=== PATIENT | male | born 1960 | race Caucasian/White ===

== ENCOUNTER 2020-07-15 13:39 | Inpatient (IN) | payer OTHER ==
[~2020-07-15] VITALS: Ht 188 cm; Wt 117.7 kg
[2020-07-15 15:22] LABS: Hemoglobin 10.2 g/dL (13.5-17.5)
[2020-07-15 15:25] LABS: Hematocrit 28.5 % (41.0-53.0); Mean Corpuscular Hemoglobin 39.8 pg (28.0-32.0); Mean Corpuscular Hgb Conc. 35.7 g/dL (32.0-36.0); Mean Corpuscular Volume 111.4 fL (80.0-100.0); Red Blood Cells 2.55 10^6/uL (4.5-5.90); Red Cell Distribution Width 18.1 % (11.8-14.3); White Blood Cell 17.6 10^3/uL (4.4-10.8)
[2020-07-15 15:45] LABS: Albumin 2.2 g/dL (3.4-5.0); Basophils % (manual) 0 (0.0-2.0); Blast Cells 0; Calcium 7.9 mg/dL (8.5-10.1); Eosinophils % (manual) 0 (0-7); Myelocytes % 0; Potassium 3.1 mmol/L (3.5-5.1); Promyelocytes % 0; Reactive Lymphocytes 0
[2020-07-15 15:50] LABS: BUN/Creatinine Ratio 27.6; Bilirubin, Total 10.6 mg/dL (0.2-1.0); INR 1.46 (0.9-1.15); Partial Thromboplastin Time 28.5 sec (23.0-31.2)
[2020-07-15] MEDS ORDERED: MORPHINE SULFATE INJECTION 2 MG/ML SYRG IV PRN ×3 (16:00→16:30)
[2020-07-15] MEDS ORDERED: NITROGLYCERIN 0.4 MG SL TAB SL PRN ×2 (16:00→16:30)
[2020-07-15] MEDS ORDERED: LORazepam 2MG/ML-1ML VIAL IV PRN (16:30)
[2020-07-15] MEDS ORDERED: MVI in SODIUM CHLORIDE 0.9% 1,010 ML IV ONE (16:30)
[2020-07-15] MEDS ORDERED: DOCUSATE SOD 100 MG CAP PO PRN (16:30)
[2020-07-15] MEDS ORDERED: HYDROcodone-ACET 5/325MG TAB PO PRN (16:30)
[2020-07-15] MEDS ORDERED: METOCLOPRAMIDE HCL 5MG/ml INJ 2ml VIAL IV PRN (16:30)
[2020-07-15] MEDS ORDERED: SUCRALFATE 1 GM/10 ML ORAL SUSP PO ONE (16:30)
[2020-07-15] MEDS ORDERED: ACETAMINOPHEN 325 MG TAB PO PRN (16:30)
[2020-07-15] MEDS ORDERED: ALUM & MAG HYDROX-SIMETH LIQ(MAALOX) 30 ML PO PRN (16:30)
[2020-07-15] MEDS ORDERED: cefTRIAXone 1GM/50ML D5W 50 ML IV ONE (16:30)
[2020-07-15] MEDS ORDERED: LORazepam 0.5 MG TAB PO PRN (16:30)
[2020-07-15] MEDS ORDERED: PANTOPRAZOLE 40 MG/10 ML VIAL INJ IV ONE (16:30)
[2020-07-15] MEDS ORDERED: LACTULOSE 20Gm/30ML SOLN PO ONE (16:30)
[2020-07-15] MEDS ORDERED: LORazepam 2MG/ML-1ML VIAL IV ONE (16:30)
[2020-07-15] MEDS: SUCRALFATE 1 GM/10 ML ORAL SUSP PO SCH ×2 (17:00→22:00)
[2020-07-15] MEDS ORDERED: POTASSIUM CHLORIDE 40 MEQ, LIDOCAINE 1% (LOCAL ANESTH.) 4 ML in SODIUM CHL 0.9% 250 ML IV ONE (17:30)
[2020-07-15] MEDS ORDERED: ALBUMIN 25% 100 ML IV ONE ×3 (17:45→20:30)
[2020-07-15] MEDS: MAGNESIUM SULFATE 1GM/100ML 100 ML IV SCH ×2 (18:00→19:00)
[2020-07-15 18:26] LABS: Band Neutrophils % (manual) 1; Lymphocytes % (manual) 7 (10.0-50.0); Metamyelocytes % 1; Monocytes % (manual) 5 (0-12)
[2020-07-15] MEDS ORDERED: THIAMINE 100mg/ml INJ (200mg/2ml VIAL) IV ONE (18:30)
[2020-07-15] MEDS: SODIUM CHLOR 0.9% PF (SALINE LOCK) 10ML VIAL/SYR IV SCH (22:00)
[2020-07-15] MEDS: LORazepam 2MG/ML-1ML VIAL IV PRN (23:21)
[2020-07-16] MEDS: ALBUMIN 25% 100 ML IV SCH ×3 (05:00→22:43)
[2020-07-16] MEDS: SODIUM CHLOR 0.9% PF (SALINE LOCK) 10ML VIAL/SYR IV SCH ×3 (05:59→22:00)
[2020-07-16 07:23] LABS: Hemoglobin 9.3 g/dL (13.5-17.5); Mean Corpuscular Volume 112.9 fL (80.0-100.0)
[2020-07-16 07:26] LABS: Hematocrit 26.8 % (41.0-53.0); Mean Corpuscular Hemoglobin 39.2 pg (28.0-32.0); Mean Corpuscular Hgb Conc. 34.7 g/dL (32.0-36.0); Red Blood Cells 2.37 10^6/uL (4.5-5.90); Red Cell Distribution Width 18.8 % (11.8-14.3); White Blood Cell 17.3 10^3/uL (4.4-10.8)
[2020-07-16 07:37] LABS: INR 1.33 (0.9-1.15); Partial Thromboplastin Time 30.1 sec (23.0-31.2)
[2020-07-16 07:42] LABS: Band Neutrophils % (manual) 0; Basophils % (manual) 0 (0.0-2.0); Blast Cells 0; Eosinophils % (manual) 0 (0-7); Metamyelocytes % 0; Reactive Lymphocytes 0
[2020-07-16 07:45] LABS: Potassium 3.1 mmol/L (3.5-5.1)
[2020-07-16 07:56] LABS: Albumin 2.3 g/dL (3.4-5.0); BUN/Creatinine Ratio 30.8; Bilirubin, Total 8.8 mg/dL (0.2-1.0); Magnesium 2.5 mg/dL (1.6-2.6); Phosphorus 3.1 mg/dL (2.5-4.90)
[2020-07-16] MEDS: SUCRALFATE 1 GM/10 ML ORAL SUSP PO SCH ×4 (08:09→23:58)
[2020-07-16 08:31] LABS: Lymphocytes % (manual) 15 (10.0-50.0); Monocytes % (manual) 7 (0-12); Myelocytes % 1; Promyelocytes % 1
[2020-07-16] MEDS ORDERED: cefTRIAXone 1GM/50ML D5W 50 ML IV SCH (09:00)
[2020-07-16] MEDS: ASPirin 81 mg TAB PO SCH ×2 (09:15→11:15)
[2020-07-16] MEDS: THIAMINE HCL 100 MG TAB PO SCH ×2 (09:16→11:15)
[2020-07-16] MEDS: SPIRONOLACTONE 25 MG TAB PO SCH ×2 (09:16→11:15)
[2020-07-16] MEDS: FOLIC ACID 1 MG TAB PO SCH ×2 (09:16→11:15)
[2020-07-16] MEDS: MULTIPLE VITAMIN TAB PO SCH ×2 (09:17→11:15)
[2020-07-16] MEDS: POTASSIUM CHL 20 Meq TABLET PO SCH ×2 (09:17→11:15)
[2020-07-16] MEDS ORDERED: PANTOPRAZOLE 40 MG/10 ML VIAL INJ IV SCH (10:00)
[2020-07-16 15:32] LABS: Urine Bacteria FEW /hpf (None Seen); Urine Blood TRACE /uL (Negative); Urine Specific Gravity 1.018 (1.001-1.035); Urine WBC 8 /hpf (0 - 3)
[2020-07-16 15:55] LABS: Alcohol, Urine < 3.0 mg/dL (0-10); Amphetamine Screen, Urine NEGATIVE (NEGATIVE); Barbiturate Scree,Urine NEGATIVE (NEGATIVE); Benzodiazephine Screen, Urine NEGATIVE (NEGATIVE); Cannabinoid Screen, Urine NEGATIVE (NEGATIVE); Cocaine Screen, Urine NEGATIVE (NEGATIVE); Opiate Scree,Urine NEGATIVE (NEGATIVE); Phencyclidine Screen, Urine NEGATIVE (NEGATIVE)
[2020-07-16] MEDS: LORazepam 2MG/ML-1ML VIAL IV PRN ×2 (18:15→21:35)
[2020-07-16] MEDS: ATORVASTATIN 20 MG TAB PO SCH (23:58)
[2020-07-17] MEDS ORDERED: POTASSIUM CHL 20MEQ/100ML 100 ML IV ONE ×2 (00:30→19:00)
[2020-07-17] MEDS: SODIUM CHLOR 0.9% PF (SALINE LOCK) 10ML VIAL/SYR IV SCH ×3 (06:00→23:10)
[2020-07-17] MEDS: CLINDAMYCIN 300MG IV 50 ML IV SCH ×3 (06:00→23:10)
[2020-07-17] MEDS: LORazepam 2MG/ML-1ML VIAL IV PRN ×5 (07:23→22:21)
[2020-07-17 07:45] LABS: Hematocrit 25.8 % (41.0-53.0); Hemoglobin 9.1 g/dL (13.5-17.5); Mean Corpuscular Volume 112.4 fL (80.0-100.0); White Blood Cell 15.6 10^3/uL (4.4-10.8)
[2020-07-17 07:46] LABS: Mean Corpuscular Hemoglobin 39.5 pg (28.0-32.0); Mean Corpuscular Hgb Conc. 35.2 g/dL (32.0-36.0); Red Cell Distribution Width 18.3 % (11.8-14.3)
[2020-07-17] MEDS: SUCRALFATE 1 GM/10 ML ORAL SUSP PO SCH ×4 (07:59→23:11)
[2020-07-17 08:12] LABS: INR 1.37 (0.9-1.15); Partial Thromboplastin Time 31.2 sec (23.0-31.2)
[2020-07-17 08:25] LABS: Basophils % (manual) 0 (0.0-2.0); Blast Cells 0; Eosinophils % (manual) 0 (0-7); Metamyelocytes % 0; Myelocytes % 0; Promyelocytes % 0; Reactive Lymphocytes 0
[2020-07-17 08:35] LABS: Calcium 7.9 mg/dL (8.5-10.1)
[2020-07-17 08:40] LABS: Albumin 2.5 g/dL (3.4-5.0); Bilirubin, Total 7.5 mg/dL (0.2-1.0); Magnesium 2.3 mg/dL (1.6-2.6); Phosphorus 3.2 mg/dL (2.5-4.90); Total Protein 6.6 g/dL (6.4-8.2)
[2020-07-17 09:47] LABS: Band Neutrophils % (manual) 1; Lymphocytes % (manual) 8 (10.0-50.0); Monocytes % (manual) 3 (0-12)
[2020-07-17] MEDS: POTASSIUM CHL 20 Meq TABLET PO SCH (10:00)
[2020-07-17] MEDS: SPIRONOLACTONE 25 MG TAB PO SCH (11:34)
[2020-07-17] MEDS: ASPirin 81 mg TAB PO SCH (11:35)
[2020-07-17] MEDS: levoFLOXacin 500MG 100 ML IV SCH (11:35)
[2020-07-17] MEDS: FAMOTIDINE (10MG/ML) 2ML VL IV SCH ×3 (11:35→23:10)
[2020-07-17] MEDS: FOLIC ACID 1 MG TAB PO SCH (11:41)
[2020-07-17] MEDS: THIAMINE HCL 100 MG TAB PO SCH (11:41)
[2020-07-17] MEDS: MULTIPLE VITAMIN TAB PO SCH (11:42)
[2020-07-17] MEDS: LACTULOSE 20Gm/30ML SOLN PO PRN (14:49)
[2020-07-17] MEDS ORDERED: diazePAM 5 MG TAB PO ONE (18:45)
[2020-07-17] MEDS ORDERED: LORazepam 2MG/ML-1ML VIAL IV SCH (22:00)
[2020-07-17] MEDS: ATORVASTATIN 20 MG TAB PO SCH (23:11)
[2020-07-18] MEDS: LORazepam 2MG/ML-1ML VIAL IV PRN ×5 (01:10→05:02)
[2020-07-18] MEDS: METOPROLOL TARTRATE 1MG/1ML-5ML VIAL IV SCH ×5 (02:37→23:57)
[2020-07-18] MEDS: SODIUM CHLOR 0.9% PF (SALINE LOCK) 10ML VIAL/SYR IV SCH ×3 (05:03→22:06)
[2020-07-18] MEDS: CLINDAMYCIN 300MG IV 50 ML IV SCH ×3 (05:03→22:06)
[2020-07-18] MEDS: SUCRALFATE 1 GM/10 ML ORAL SUSP PO SCH ×4 (06:08→22:06)
[2020-07-18 07:31] LABS: Basophils # (auto) 0.1 10 ^3/uL (0-0.2); Lymphocytes % (auto) 9.5 % (10.0-50.0); Mean Corpuscular Hemoglobin 39.4 pg (28.0-32.0); Monocytes # (auto) 1.6 10 ^3/uL (0-1.3); Nucleated Red Blood Cells % 0.2 %
[2020-07-18 07:34] LABS: Basophils % (auto) 0.8 % (0.0-2.0); Eosinophils # (auto) 0.1 10 ^3/uL (0-0.8); Eosinophils % (auto) 0.4 % (0.0-7.0); Hematocrit 26.5 % (41.0-53.0); Hemoglobin 9.2 g/dL (13.5-17.5); Lymphocytes # (auto) 1.4 10 ^3/uL (0.4-5.4); Mean Corpuscular Hgb Conc. 34.7 g/dL (32.0-36.0); Mean Corpuscular Volume 113.5 fL (80.0-100.0); Monocytes % (auto) 10.9 % (0.0-12.0); Neutrophils # (auto) 11.2 10 ^3/uL (1.6-8.6); Neutrophils % (auto) 78.4 % (37.0-80.0); Red Blood Cells 2.33 10^6/uL (4.5-5.90); Red Cell Distribution Width 19.3 % (11.8-14.3); White Blood Cell 14.3 10^3/uL (4.4-10.8)
[2020-07-18 07:51] LABS: INR 1.38 (0.9-1.15); Partial Thromboplastin Time 30.9 sec (23.0-31.2)
[2020-07-18 07:52] LABS: Magnesium 2.2 mg/dL (1.6-2.6); Potassium 3.5 mmol/L (3.5-5.1)
[2020-07-18 08:08] LABS: BUN/Creatinine Ratio 30.5
[2020-07-18 08:09] LABS: Albumin 2.3 g/dL (3.4-5.0); Bilirubin, Total 6.7 mg/dL (0.2-1.0); Calcium 8.3 mg/dL (8.5-10.1); Phosphorus 2.8 mg/dL (2.5-4.90); Total Protein 6.5 g/dL (6.4-8.2)
[2020-07-18] MEDS: THIAMINE HCL 100 MG TAB PO SCH (10:00)
[2020-07-18] MEDS: FAMOTIDINE (10MG/ML) 2ML VL IV SCH ×2 (10:00→22:06)
[2020-07-18] MEDS: FOLIC ACID 1 MG TAB PO SCH (10:47)
[2020-07-18] MEDS: ATORVASTATIN 20 MG TAB PO SCH (10:47)
[2020-07-18] MEDS: SPIRONOLACTONE 25 MG TAB PO SCH (10:47)
[2020-07-18] MEDS: MULTIPLE VITAMIN TAB PO SCH (10:47)
[2020-07-18] MEDS: ASPirin 81 mg TAB PO SCH (10:47)
[2020-07-18] MEDS: levoFLOXacin 500MG 100 ML IV SCH (10:55)
[2020-07-18] MEDS ORDERED: ENOXAPARIN SOD 40 MG/0.4 ML SYRINGE SC ONE (19:30)
[2020-07-19] MEDS: CLINDAMYCIN 300MG IV 50 ML IV SCH (06:01)
[2020-07-19] MEDS: METOPROLOL TARTRATE 1MG/1ML-5ML VIAL IV SCH ×3 (06:02→17:40)
[2020-07-19] MEDS: SODIUM CHLOR 0.9% PF (SALINE LOCK) 10ML VIAL/SYR IV SCH ×3 (06:02→22:13)
[2020-07-19 06:14] VITALS: BP 129/66
[2020-07-19] MEDS: SUCRALFATE 1 GM/10 ML ORAL SUSP PO SCH ×4 (06:49→22:13)
[2020-07-19 08:00] VITALS: BP 141/74
[2020-07-19] MEDS: levoFLOXacin 500MG 100 ML IV SCH (09:54)
[2020-07-19] MEDS: FAMOTIDINE (10MG/ML) 2ML VL IV SCH ×2 (09:54→22:13)
[2020-07-19] MEDS: SPIRONOLACTONE 25 MG TAB PO SCH (09:55)
[2020-07-19] MEDS: ASPirin 81 mg TAB PO SCH (09:55)
[2020-07-19] MEDS: THIAMINE HCL 100 MG TAB PO SCH (09:55)
[2020-07-19] MEDS: MULTIPLE VITAMIN TAB PO SCH (09:55)
[2020-07-19] MEDS: FOLIC ACID 1 MG TAB PO SCH (09:55)
[2020-07-19] MEDS ORDERED: ENOXAPARIN SOD 40 MG/0.4 ML SYRINGE SC SCH (10:00)
[2020-07-19] MEDS ORDERED: ENOXAPARIN SOD 60 MG/0.6 ML SYRINGE SC ONE (10:15)
[2020-07-19] MEDS ORDERED: dilTIAZem 25 MG/5 ML VIAL IV ONE (10:15)
[2020-07-19] MEDS ORDERED: Jevity 1.2 Cal/Fiber 1 Liter GT SCH (10:30)
[2020-07-19 11:31] LABS: Basophils # (auto) 0.1 10 ^3/uL (0-0.2); Hematocrit 25.1 % (41.0-53.0); Hemoglobin 8.7 g/dL (13.5-17.5); Mean Corpuscular Hemoglobin 39.8 pg (28.0-32.0); Mean Corpuscular Hgb Conc. 34.7 g/dL (32.0-36.0); Mean Corpuscular Volume 114.8 fL (80.0-100.0)
[2020-07-19 11:33] LABS: Basophils % (auto) 0.8 % (0.0-2.0); Eosinophils # (auto) 0 10 ^3/uL (0-0.8); Eosinophils % (auto) 0.3 % (0.0-7.0); Lymphocytes # (auto) 1.4 10 ^3/uL (0.4-5.4); Lymphocytes % (auto) 10.2 % (10.0-50.0); Monocytes # (auto) 1.5 10 ^3/uL (0-1.3); Monocytes % (auto) 10.6 % (0.0-12.0); Neutrophils # (auto) 10.7 10 ^3/uL (1.6-8.6); Neutrophils % (auto) 78.1 % (37.0-80.0); Nucleated Red Blood Cells % 0.1 %; Red Blood Cells 2.18 10^6/uL (4.5-5.90); White Blood Cell 13.7 10^3/uL (4.4-10.8)
[2020-07-19 11:41] LABS: Red Cell Distribution Width 20.1 % (11.8-14.3)
[2020-07-19] MEDS: PIPERACILLIN-TAZOB 3.375GM 100 ML IV SCH ×2 (12:00→17:40)
[2020-07-19 12:01] LABS: Potassium 3.2 mmol/L (3.5-5.1)
[2020-07-19 12:24] LABS: BUN/Creatinine Ratio 27.6; Bilirubin, Total 5.4 mg/dL (0.2-1.0)
[2020-07-19] MEDS ORDERED: POTASSIUM EFFERVESENT TAB 25 MEQ GT ONE (13:45)
[2020-07-19] MEDS ORDERED: FUROSEMIDE 20 MG/2 ML VIAL IV ONE (15:15)
[2020-07-19 16:33] VITALS: BP 128/80
[2020-07-19 22:00] VITALS: BP 114/72
[2020-07-19] MEDS: ENOXAPARIN SOD 100 MG/1 ML SYRINGE SC SCH (22:14)
[2020-07-19] MEDS: ATORVASTATIN 20 MG TAB PO SCH (22:14)
[2020-07-20] MEDS: METOPROLOL TARTRATE 1MG/1ML-5ML VIAL IV SCH ×4 (00:34→18:16)
[2020-07-20] MEDS: PIPERACILLIN-TAZOB 3.375GM 100 ML IV SCH ×4 (00:35→18:16)
[2020-07-20 05:00] VITALS: BP 141/74
[2020-07-20] MEDS: SODIUM CHLOR 0.9% PF (SALINE LOCK) 10ML VIAL/SYR IV SCH ×3 (06:00→21:47)
[2020-07-20] MEDS: SUCRALFATE 1 GM/10 ML ORAL SUSP PO SCH ×5 (07:00→21:47)
[2020-07-20 07:28] LABS: Basophils # (auto) 0.2 10 ^3/uL (0-0.2); Hemoglobin 9.1 g/dL (13.5-17.5); Lymphocytes # (auto) 1.4 10 ^3/uL (0.4-5.4); Red Blood Cells 2.28 10^6/uL (4.5-5.90)
[2020-07-20 07:29] LABS: Basophils % (auto) 1.2 % (0.0-2.0); Eosinophils # (auto) 0 10 ^3/uL (0-0.8); Eosinophils % (auto) 0.2 % (0.0-7.0); Hematocrit 26.2 % (41.0-53.0); Lymphocytes % (auto) 8.2 % (10.0-50.0); Mean Corpuscular Hemoglobin 39.7 pg (28.0-32.0); Mean Corpuscular Hgb Conc. 34.7 g/dL (32.0-36.0); Mean Corpuscular Volume 114.5 fL (80.0-100.0); Monocytes # (auto) 1.9 10 ^3/uL (0-1.3); Neutrophils # (auto) 13.4 10 ^3/uL (1.6-8.6); Neutrophils % (auto) 79.4 % (37.0-80.0); White Blood Cell 16.9 10^3/uL (4.4-10.8)
[2020-07-20 07:41] LABS: Potassium 3.5 mmol/L (3.5-5.1)
[2020-07-20 07:47] LABS: BUN/Creatinine Ratio 25.8; Bilirubin, Total 5.1 mg/dL (0.2-1.0); Total Protein 6.1 g/dL (6.4-8.2)
[2020-07-20 08:00] VITALS: BP 130/80
[2020-07-20] MEDS: LORazepam 2MG/ML-1ML VIAL IV PRN (08:38)
[2020-07-20] MEDS ORDERED: FUROSEMIDE 20 MG/2 ML VIAL IV SCH ×2 (10:00→11:15)
[2020-07-20] MEDS: FAMOTIDINE (10MG/ML) 2ML VL IV SCH ×2 (10:42→21:47)
[2020-07-20] MEDS: SPIRONOLACTONE 25 MG TAB PO SCH (10:43)
[2020-07-20] MEDS: THIAMINE HCL 100 MG TAB PO SCH (10:43)
[2020-07-20] MEDS: FOLIC ACID 1 MG TAB PO SCH (10:43)
[2020-07-20] MEDS: MULTIPLE VITAMIN TAB PO SCH (10:43)
[2020-07-20] MEDS: ASPirin 81 mg TAB PO SCH (10:43)
[2020-07-20] MEDS: ENOXAPARIN SOD 100 MG/1 ML SYRINGE SC SCH ×2 (10:43→21:48)
[2020-07-20] MEDS ORDERED: FUROSEMIDE 20 MG/2 ML VIAL IV ONE (11:15)
[2020-07-20] MEDS: LACTULOSE 20Gm/30ML SOLN PO PRN (12:59)
[2020-07-20 17:00] VITALS: BP 124/66
[2020-07-20] MEDS: ATORVASTATIN 20 MG TAB PO SCH (21:48)
[2020-07-20 22:00] VITALS: BP 127/70
[2020-07-21] MEDS: PIPERACILLIN-TAZOB 3.375GM 100 ML IV SCH ×4 (01:09→17:29)
[2020-07-21] MEDS: METOPROLOL TARTRATE 1MG/1ML-5ML VIAL IV SCH ×4 (01:09→17:30)
[2020-07-21 05:00] VITALS: BP 150/74
[2020-07-21 05:47] LABS: Basophils # (auto) 0.2 10 ^3/uL (0-0.2); Basophils % (auto) 1.2 % (0.0-2.0); Mean Corpuscular Volume 114.8 fL (80.0-100.0); Red Cell Distribution Width 19.5 % (11.8-14.3)
[2020-07-21 05:49] LABS: Eosinophils # (auto) 0.2 10 ^3/uL (0-0.8); Eosinophils % (auto) 1.1 % (0.0-7.0); Hematocrit 26.8 % (41.0-53.0); Hemoglobin 9.4 g/dL (13.5-17.5); Lymphocytes # (auto) 1.8 10 ^3/uL (0.4-5.4); Lymphocytes % (auto) 11.4 % (10.0-50.0); Mean Corpuscular Hemoglobin 40.1 pg (28.0-32.0); Mean Corpuscular Hgb Conc. 34.9 g/dL (32.0-36.0); Monocytes % (auto) 12.7 % (0.0-12.0); Neutrophils # (auto) 11.6 10 ^3/uL (1.6-8.6); Neutrophils % (auto) 73.6 % (37.0-80.0); Red Blood Cells 2.34 10^6/uL (4.5-5.90); White Blood Cell 15.7 10^3/uL (4.4-10.8)
[2020-07-21 06:09] LABS: BUN/Creatinine Ratio 31.3; Calcium 8.5 mg/dL (8.5-10.1); Potassium 3.2 mmol/L (3.5-5.1)
[2020-07-21] MEDS: SUCRALFATE 1 GM/10 ML ORAL SUSP PO SCH ×4 (06:29→22:00)
[2020-07-21] MEDS: SODIUM CHLOR 0.9% PF (SALINE LOCK) 10ML VIAL/SYR IV SCH ×3 (06:29→22:01)
[2020-07-21 08:00] VITALS: BP 135/76
[2020-07-21] MEDS ORDERED: FUROSEMIDE 20 MG/2 ML VIAL IV SCH (10:00)
[2020-07-21] MEDS: FAMOTIDINE (10MG/ML) 2ML VL IV SCH ×2 (10:29→22:00)
[2020-07-21] MEDS: THIAMINE HCL 100 MG TAB PO SCH (10:30)
[2020-07-21] MEDS: MULTIPLE VITAMIN TAB PO SCH (10:30)
[2020-07-21] MEDS: ASPirin 81 mg TAB PO SCH (10:30)
[2020-07-21] MEDS: ENOXAPARIN SOD 100 MG/1 ML SYRINGE SC SCH (10:30)
[2020-07-21] MEDS: FOLIC ACID 1 MG TAB PO SCH (10:30)
[2020-07-21] MEDS: SPIRONOLACTONE 25 MG TAB PO SCH (10:30)
[2020-07-21] MEDS: POTASSIUM CHL 20MEQ/100ML 100 ML IV SCH ×3 (14:00→18:25)
[2020-07-21 16:00] VITALS: BP 121/56
[2020-07-21 22:00] VITALS: BP 146/74
[2020-07-21] MEDS: ATORVASTATIN 20 MG TAB PO SCH (22:00)
[2020-07-21] MEDS: LORazepam 2MG/ML-1ML VIAL IV PRN (22:02)
[2020-07-22] MEDS: METOPROLOL TARTRATE 1MG/1ML-5ML VIAL IV SCH ×2 (00:11→05:32)
[2020-07-22] MEDS: PIPERACILLIN-TAZOB 3.375GM 100 ML IV SCH ×5 (00:11→23:48)
[2020-07-22 05:00] VITALS: BP 147/69
[2020-07-22] MEDS: SODIUM CHLOR 0.9% PF (SALINE LOCK) 10ML VIAL/SYR IV SCH ×3 (05:36→22:02)
[2020-07-22] MEDS: SUCRALFATE 1 GM/10 ML ORAL SUSP PO SCH ×4 (06:19→20:40)
[2020-07-22 06:39] LABS: Basophils # (auto) 0.2 10 ^3/uL (0-0.2); Monocytes # (auto) 2.3 10 ^3/uL (0-1.3)
[2020-07-22 06:42] LABS: Eosinophils # (auto) 0.3 10 ^3/uL (0-0.8); Eosinophils % (auto) 1.8 % (0.0-7.0); Hematocrit 26.5 % (41.0-53.0); Lymphocytes % (auto) 12.6 % (10.0-50.0); Mean Corpuscular Hemoglobin 39.3 pg (28.0-32.0); Mean Corpuscular Hgb Conc. 34.1 g/dL (32.0-36.0); Mean Corpuscular Volume 115.3 fL (80.0-100.0); Monocytes % (auto) 14.6 % (0.0-12.0); Neutrophils # (auto) 10.9 10 ^3/uL (1.6-8.6); Red Blood Cells 2.29 10^6/uL (4.5-5.90); Red Cell Distribution Width 19.1 % (11.8-14.3); White Blood Cell 15.6 10^3/uL (4.4-10.8)
[2020-07-22 07:03] LABS: Potassium 3.8 mmol/L (3.5-5.1)
[2020-07-22 07:09] LABS: Albumin 1.8 g/dL (3.4-5.0); BUN/Creatinine Ratio 34.3; Bilirubin, Total 3.9 mg/dL (0.2-1.0); Calcium 8.2 mg/dL (8.5-10.1)
[2020-07-22 08:00] VITALS: BP 157/84
[2020-07-22] MEDS: FAMOTIDINE (10MG/ML) 2ML VL IV SCH ×2 (09:41→22:02)
[2020-07-22] MEDS: MULTIPLE VITAMIN TAB PO SCH (09:42)
[2020-07-22] MEDS: SPIRONOLACTONE 25 MG TAB PO SCH (09:44)
[2020-07-22] MEDS: FOLIC ACID 1 MG TAB PO SCH (09:44)
[2020-07-22] MEDS: THIAMINE HCL 100 MG TAB PO SCH (09:44)
[2020-07-22] MEDS ORDERED: FUROSEMIDE 40 MG/4 ML VIAL IV SCH (10:00)
[2020-07-22] MEDS ORDERED: DIGOXIN 0.25 MG TAB PO ONE (14:15)
[2020-07-22] MEDS ORDERED: ALBUTEROL SULF 2.5 MG/0.5ML(0.5%) NEB SOLN NEB PRN (14:15)
[2020-07-22] MEDS ORDERED: LACTULOSE 20Gm/30ML SOLN PO PRN (14:15)
[2020-07-22 16:01] VITALS: BP 142/77
[2020-07-22 17:04] LABS: Hepatitis B Core IgM Negative; Hepatitis B Surface Antigen Negative (Negative)
[2020-07-22 17:05] LABS: Hepatitis C Antibody Negative (Negative)
[2020-07-22] MEDS: LORazepam 2MG/ML-1ML VIAL IV PRN (17:15)
[2020-07-22] MEDS: METOPROLOL TARTRATE 25 MG TAB PO SCH (20:40)
[2020-07-22] MEDS: ATORVASTATIN 20 MG TAB PO SCH (20:40)
[2020-07-22] MEDS ORDERED: FUROSEMIDE 20 MG/2 ML VIAL IV SCH (20:45)
[2020-07-22 22:00] VITALS: BP 134/92
[2020-07-22] MEDS: METOPROLOL TARTRATE 1MG/1ML-5ML VIAL IV PRN (23:06)
[2020-07-23] VITALS (44 sets, daily range): BP systolic 67–172; BP diastolic 24–110
[2020-07-23] MEDS: SODIUM CHLOR 0.9% PF (SALINE LOCK) 10ML VIAL/SYR IV SCH ×3 (06:00→22:00)
[2020-07-23] MEDS: PIPERACILLIN-TAZOB 3.375GM 100 ML IV SCH ×3 (06:00→17:00)
[2020-07-23] MEDS: SUCRALFATE 1 GM/10 ML ORAL SUSP PO SCH ×4 (07:00→22:00)
[2020-07-23 09:17] LABS: Hematocrit 27.3 % (41.0-53.0); Hemoglobin 9.2 g/dL (13.5-17.5)
[2020-07-23 09:19] LABS: Mean Corpuscular Hemoglobin 39.2 pg (28.0-32.0); Mean Corpuscular Hgb Conc. 33.8 g/dL (32.0-36.0); Mean Corpuscular Volume 116.1 fL (80.0-100.0); Red Blood Cells 2.35 10^6/uL (4.5-5.90); Red Cell Distribution Width 18.9 % (11.8-14.3); White Blood Cell 16.9 10^3/uL (4.4-10.8)
[2020-07-23 09:28] LABS: Band Neutrophils % (manual) 0; Basophils % (manual) 0 (0.0-2.0); Blast Cells 0; Eosinophils % (manual) 0 (0-7); Metamyelocytes % 0; Myelocytes % 0; Promyelocytes % 0; Reactive Lymphocytes 0
[2020-07-23 09:34] LABS: BUN/Creatinine Ratio 32.7; Calcium 8.6 mg/dL (8.5-10.1); Potassium 3.8 mmol/L (3.5-5.1)
[2020-07-23 09:44] LABS: Lymphocytes % (manual) 13 (10.0-50.0); Monocytes % (manual) 18 (0-12)
[2020-07-23] MEDS: FAMOTIDINE (10MG/ML) 2ML VL IV SCH ×2 (09:56→22:00)
[2020-07-23] MEDS: METOPROLOL TARTRATE 1MG/1ML-5ML VIAL IV PRN (09:56)
[2020-07-23] MEDS: FOLIC ACID 1 MG TAB PO SCH (09:57)
[2020-07-23] MEDS: DIGOXIN 0.25 MG TAB PO SCH (09:57)
[2020-07-23] MEDS: THIAMINE HCL 100 MG TAB PO SCH (09:57)
[2020-07-23] MEDS: SPIRONOLACTONE 25 MG TAB PO SCH (09:57)
[2020-07-23] MEDS: MULTIPLE VITAMIN TAB PO SCH (09:58)
[2020-07-23] MEDS: METOPROLOL TARTRATE 25 MG TAB PO SCH ×3 (09:58→22:00)
[2020-07-23] MEDS ORDERED: FUROSEMIDE 20 MG/2 ML VIAL IV SCH (10:00)
[2020-07-23] MEDS: D5W 5% 1,000 ML IV SCH ×2 (12:37→20:15)
[2020-07-23] MEDS: ATORVASTATIN 20 MG TAB PO SCH (22:00)
[2020-07-24] VITALS (54 sets, daily range): BP systolic 101–162; BP diastolic 43–114
[2020-07-24 05:00] LABS: Hemoglobin 8.5 g/dL (13.5-17.5)
[2020-07-24 05:02] LABS: Hematocrit 24.8 % (41.0-53.0); Mean Corpuscular Hemoglobin 39.7 pg (28.0-32.0); Mean Corpuscular Hgb Conc. 34.4 g/dL (32.0-36.0); Mean Corpuscular Volume 115.3 fL (80.0-100.0); Red Blood Cells 2.15 10^6/uL (4.5-5.90); Red Cell Distribution Width 18.9 % (11.8-14.3); White Blood Cell 14.4 10^3/uL (4.4-10.8)
[2020-07-24 05:06] LABS: Basophils % (manual) 0 (0.0-2.0); Blast Cells 0; Metamyelocytes % 0; Myelocytes % 0; Promyelocytes % 0; Reactive Lymphocytes 0
[2020-07-24 05:13] LABS: BUN/Creatinine Ratio 37.2; Calcium 8.2 mg/dL (8.5-10.1); Potassium 3.3 mmol/L (3.5-5.1)
[2020-07-24] MEDS: SODIUM CHLOR 0.9% PF (SALINE LOCK) 10ML VIAL/SYR IV SCH ×3 (05:19→21:50)
[2020-07-24] MEDS: PIPERACILLIN-TAZOB 3.375GM 100 ML IV SCH ×5 (05:19→23:43)
[2020-07-24 05:37] LABS: Band Neutrophils % (manual) 13; Eosinophils % (manual) 4 (0-7); Lymphocytes % (manual) 18 (10.0-50.0); Monocytes % (manual) 7 (0-12)
[2020-07-24] MEDS: SUCRALFATE 1 GM/10 ML ORAL SUSP PO SCH ×4 (06:24→21:50)
[2020-07-24] MEDS: METOPROLOL TARTRATE 25 MG TAB PO SCH ×2 (09:00→21:58)
[2020-07-24] MEDS: THIAMINE HCL 100 MG TAB PO SCH (09:00)
[2020-07-24] MEDS: MULTIPLE VITAMIN TAB PO SCH (09:00)
[2020-07-24] MEDS: FOLIC ACID 1 MG TAB PO SCH (09:00)
[2020-07-24] MEDS: DIGOXIN 0.25 MG TAB PO SCH (09:00)
[2020-07-24] MEDS: FAMOTIDINE (10MG/ML) 2ML VL IV SCH ×2 (09:00→21:50)
[2020-07-24] MEDS: SPIRONOLACTONE 25 MG TAB PO SCH (09:00)
[2020-07-24] MEDS ORDERED: POTASSIUM CHL 20MEQ/100ML 100 ML IV ONE (09:45)
[2020-07-24] MEDS: D5W 5% 1,000 ML IV SCH (11:00)
[2020-07-24] MEDS: chlordiazePOXIDE HCL 5 MG CAP PO SCH ×3 (13:08→21:50)
[2020-07-24] MEDS: DOXYCYCLINE 100MG/250ML 250 ML IV SCH (21:15)
[2020-07-24] MEDS: ATORVASTATIN 20 MG TAB PO SCH (21:50)
[2020-07-24] MEDS ORDERED: DEXTROSE (50%) 50ML SYRG IV SCH (22:30)
[2020-07-24] MEDS ORDERED: AMINO ACID INFUSION IN D5W 2,000 ML IV NR (22:45)
[2020-07-24] MEDS ORDERED: D5W 5% 1,000 ML IV SCH ×2 (22:45)
[2020-07-24] MEDS ORDERED: PPN PER PHARMACY 0 ML IV SCH (23:15)
[2020-07-25] VITALS (40 sets, daily range): BP systolic 91–141; BP diastolic 51–98
[2020-07-25] MEDS: chlordiazePOXIDE HCL 5 MG CAP PO SCH ×4 (02:00→22:00)
[2020-07-25 04:35] LABS: Basophils # (auto) 0.3 10 ^3/uL (0-0.2); Eosinophils # (auto) 0.3 10 ^3/uL (0-0.8); Hemoglobin 8.8 g/dL (13.5-17.5); White Blood Cell 12.6 10^3/uL (4.4-10.8)
[2020-07-25 04:37] LABS: Eosinophils % (auto) 2.2 % (0.0-7.0); Hematocrit 25.8 % (41.0-53.0); Lymphocytes # (auto) 2.4 10 ^3/uL (0.4-5.4); Mean Corpuscular Hgb Conc. 33.9 g/dL (32.0-36.0); Mean Corpuscular Volume 115.2 fL (80.0-100.0); Monocytes # (auto) 1.9 10 ^3/uL (0-1.3); Monocytes % (auto) 15.2 % (0.0-12.0); Neutrophils # (auto) 7.8 10 ^3/uL (1.6-8.6); Neutrophils % (auto) 61.6 % (37.0-80.0); Red Blood Cells 2.24 10^6/uL (4.5-5.90); Red Cell Distribution Width 18.7 % (11.8-14.3)
[2020-07-25 04:54] LABS: Albumin 1.7 g/dL (3.4-5.0); BUN/Creatinine Ratio 31.4; Calcium 8.3 mg/dL (8.5-10.1); Magnesium 2.1 mg/dL (1.6-2.6); Potassium 3.3 mmol/L (3.5-5.1)
[2020-07-25 05:00] LABS: Phosphorus 3.3 mg/dL (2.5-4.90); Total Protein 5.8 g/dL (6.4-8.2)
[2020-07-25] MEDS: PIPERACILLIN-TAZOB 3.375GM 100 ML IV SCH ×3 (05:27→17:00)
[2020-07-25] MEDS: SODIUM CHLOR 0.9% PF (SALINE LOCK) 10ML VIAL/SYR IV SCH ×3 (05:27→21:47)
[2020-07-25] MEDS: ACCU-CHEK COMFORT CURVE STRIP VI SCH ×4 (05:28→17:00)
[2020-07-25] MEDS: InsuLIN REG 1unit/0.01ml Soln (100units/ml) SC SCH ×4 (05:28→17:00)
[2020-07-25] MEDS: SUCRALFATE 1 GM/10 ML ORAL SUSP PO SCH ×4 (07:00→21:47)
[2020-07-25] MEDS: DOXYCYCLINE 100MG/250ML 250 ML IV SCH ×2 (08:50→21:00)
[2020-07-25] MEDS: THIAMINE 100mg/ml INJ (200mg/2ml VIAL) IV SCH (09:55)
[2020-07-25] MEDS: FAMOTIDINE (10MG/ML) 2ML VL IV SCH ×2 (09:55→21:47)
[2020-07-25] MEDS: SPIRONOLACTONE 25 MG TAB PO SCH (09:56)
[2020-07-25] MEDS: DIGOXIN 0.25 MG TAB PO SCH (09:56)
[2020-07-25] MEDS: METOPROLOL TARTRATE 25 MG TAB PO SCH ×2 (09:56→21:47)
[2020-07-25] MEDS: MULTIPLE VITAMIN TAB PO SCH (09:57)
[2020-07-25] MEDS: FOLIC ACID 1 MG TAB PO SCH (09:58)
[2020-07-25] MEDS ORDERED: POTASSIUM EFFERVESENT TAB 25 MEQ PO ONE (10:00)
[2020-07-25] MEDS ORDERED: POTASSIUM CHL 20MEQ/100ML 100 ML IV ONE (12:30)
[2020-07-25] MEDS ORDERED: LORazepam 2MG/ML-1ML VIAL IV PRN (12:45)
[2020-07-25] MEDS ORDERED: [UNRECOGNIZED DRUG - OTHER] IV NR ×8 (20:00)
[2020-07-25] MEDS ORDERED: POTASSIUM ACETATE IV NR ×8 (20:00)
[2020-07-25] MEDS ORDERED: FAT EMULSION IV NR ×8 (20:00)
[2020-07-25] MEDS ORDERED: POTASSIUM CHLORIDE IV NR ×8 (20:00)
[2020-07-25] MEDS: ATORVASTATIN 20 MG TAB PO SCH (21:47)
[2020-07-25] MEDS: THIAMINE IV SCH (22:00)
[2020-07-25] MEDS: D5W 5% IV SCH (22:00)
[2020-07-26] VITALS (42 sets, daily range): BP systolic 113–170; BP diastolic 40–142
[2020-07-26] MEDS: PIPERACILLIN-TAZOB 3.375GM 100 ML IV SCH ×4 (00:01→22:30)
[2020-07-26] MEDS: InsuLIN REG 1unit/0.01ml Soln (100units/ml) SC SCH ×4 (00:02→18:00)
[2020-07-26] MEDS: ACCU-CHEK COMFORT CURVE STRIP VI SCH ×4 (00:02→18:08)
[2020-07-26] MEDS: chlordiazePOXIDE HCL 5 MG CAP PO SCH ×6 (02:00→22:00)
[2020-07-26 05:35] LABS: Potassium 3.2 mmol/L (3.5-5.1)
[2020-07-26] MEDS: SODIUM CHLOR 0.9% PF (SALINE LOCK) 10ML VIAL/SYR IV SCH ×4 (05:59→22:00)
[2020-07-26] MEDS: SUCRALFATE 1 GM/10 ML ORAL SUSP PO SCH ×4 (06:00→22:00)
[2020-07-26 06:24] LABS: Albumin 1.6 g/dL (3.4-5.0); BUN/Creatinine Ratio 30.1; Bilirubin, Total 2.9 mg/dL (0.2-1.0); Phosphorus 2.5 mg/dL (2.5-4.90); Total Protein 5.8 g/dL (6.4-8.2)
[2020-07-26] MEDS: DOXYCYCLINE 100MG/250ML 250 ML IV SCH ×2 (08:14→22:00)
[2020-07-26] MEDS: THIAMINE 100mg/ml INJ (200mg/2ml VIAL) IV SCH (09:57)
[2020-07-26] MEDS: FAMOTIDINE (10MG/ML) 2ML VL IV SCH ×2 (09:57→22:00)
[2020-07-26] MEDS: FOLIC ACID 1 MG TAB PO SCH (09:57)
[2020-07-26] MEDS: SPIRONOLACTONE 25 MG TAB PO SCH (09:58)
[2020-07-26] MEDS: DIGOXIN 0.25 MG TAB PO SCH (09:58)
[2020-07-26] MEDS: MULTIPLE VITAMIN TAB PO SCH (09:59)
[2020-07-26] MEDS: METOPROLOL TARTRATE 25 MG TAB PO SCH ×2 (09:59→23:00)
[2020-07-26] MEDS: POTASSIUM CHL 20MEQ/100ML 100 ML IV SCH ×2 (12:49→14:00)
[2020-07-26] MEDS ORDERED: LORazepam 2MG/ML-1ML VIAL IV PRN (13:45)
[2020-07-26] MEDS ORDERED: FUROSEMIDE 20 MG/2 ML VIAL IV ONE (16:00)
[2020-07-26 16:02] LABS: INR 1.32 (0.9-1.15); Partial Thromboplastin Time 32.5 sec (23.0-31.2)
[2020-07-26] MEDS: LORazepam 2MG/ML-1ML VIAL IV PRN (17:50)
[2020-07-26] MEDS ORDERED: POTASSIUM CHLORIDE IV NR ×9 (20:00)
[2020-07-26] MEDS ORDERED: [UNRECOGNIZED DRUG - OTHER] IV NR ×9 (20:00)
[2020-07-26] MEDS ORDERED: POTASSIUM ACETATE IV NR ×9 (20:00)
[2020-07-26] MEDS ORDERED: FAT EMULSION IV NR ×9 (20:00)
[2020-07-26] MEDS: ATORVASTATIN 20 MG TAB PO SCH (22:00)
[2020-07-26] MEDS: THIAMINE IV SCH (22:00)
[2020-07-26] MEDS: D5W 5% IV SCH (22:00)
[2020-07-27] VITALS (36 sets, daily range): BP systolic 132–176; BP diastolic 60–123
[2020-07-27] MEDS: ACCU-CHEK COMFORT CURVE STRIP VI SCH ×4 (00:45→18:03)
[2020-07-27] MEDS: InsuLIN REG 1unit/0.01ml Soln (100units/ml) SC SCH ×4 (00:45→18:02)
[2020-07-27] MEDS: chlordiazePOXIDE HCL 5 MG CAP PO SCH ×4 (02:00→13:08)
[2020-07-27] MEDS: PIPERACILLIN-TAZOB 3.375GM 100 ML IV SCH ×4 (02:06→20:00)
[2020-07-27 05:43] LABS: Calcium 8.1 mg/dL (8.5-10.1); Potassium 3.9 mmol/L (3.5-5.1)
[2020-07-27 05:48] LABS: Albumin 1.7 g/dL (3.4-5.0); BUN/Creatinine Ratio 29.1; Bilirubin, Total 2.5 mg/dL (0.2-1.0); Phosphorus 3.8 mg/dL (2.5-4.90)
[2020-07-27] MEDS: D5W 5% IV SCH ×3 (06:00→22:07)
[2020-07-27] MEDS: THIAMINE IV SCH ×3 (06:00→22:07)
[2020-07-27] MEDS: SODIUM CHLOR 0.9% PF (SALINE LOCK) 10ML VIAL/SYR IV SCH ×4 (06:27→22:08)
[2020-07-27] MEDS: SUCRALFATE 1 GM/10 ML ORAL SUSP PO SCH ×4 (06:37→22:09)
[2020-07-27] MEDS: DOXYCYCLINE 100MG/250ML 250 ML IV SCH (08:55)
[2020-07-27] MEDS: FAMOTIDINE (10MG/ML) 2ML VL IV SCH ×2 (09:43→22:07)
[2020-07-27] MEDS: SPIRONOLACTONE 25 MG TAB PO SCH (09:44)
[2020-07-27] MEDS: FOLIC ACID 1 MG TAB PO SCH (09:44)
[2020-07-27] MEDS: DIGOXIN 0.25 MG TAB PO SCH (09:45)
[2020-07-27] MEDS: METOPROLOL TARTRATE 25 MG TAB PO SCH ×2 (09:45→22:09)
[2020-07-27] MEDS: MULTIPLE VITAMIN TAB PO SCH (09:46)
[2020-07-27] MEDS ORDERED: FUROSEMIDE 20 MG/2 ML VIAL IV SCH (10:00)
[2020-07-27] MEDS ORDERED: Glucerna 1.2 Cal 1Liter BOTTLE GT SCH (15:00)
[2020-07-27] MEDS ORDERED: FAT EMULSION IV NR ×7 (20:00)
[2020-07-27] MEDS ORDERED: POTASSIUM PHOSPHATE IV NR ×7 (20:00)
[2020-07-27] MEDS ORDERED: POTASSIUM CHLORIDE IV NR ×7 (20:00)
[2020-07-27] MEDS ORDERED: [UNRECOGNIZED DRUG - OTHER] IV NR ×7 (20:00)
[2020-07-28] VITALS (38 sets, daily range): BP systolic 123–180; BP diastolic 66–126
[2020-07-28] MEDS: PIPERACILLIN-TAZOB 3.375GM 100 ML IV SCH ×4 (02:00→19:55)
[2020-07-28] MEDS: THIAMINE IV SCH ×3 (06:00→21:41)
[2020-07-28] MEDS: D5W 5% IV SCH ×3 (06:00→21:41)
[2020-07-28] MEDS: ACCU-CHEK COMFORT CURVE STRIP VI SCH ×4 (06:00→17:44)
[2020-07-28] MEDS: InsuLIN REG 1unit/0.01ml Soln (100units/ml) SC SCH ×4 (06:00→17:44)
[2020-07-28] MEDS: SUCRALFATE 1 GM/10 ML ORAL SUSP PO SCH ×4 (07:00→21:28)
[2020-07-28 08:36] LABS: Basophils # (auto) 0.2 10 ^3/uL (0-0.2); Eosinophils # (auto) 0.2 10 ^3/uL (0-0.8); Eosinophils % (auto) 1.3 % (0.0-7.0); Hemoglobin 8.7 g/dL (13.5-17.5); Mean Corpuscular Hemoglobin 38.5 pg (28.0-32.0); White Blood Cell 17.5 10^3/uL (4.4-10.8)
[2020-07-28 08:39] LABS: Basophils % (auto) 1.3 % (0.0-2.0); Hematocrit 24.9 % (41.0-53.0); Lymphocytes # (auto) 2.5 10 ^3/uL (0.4-5.4); Lymphocytes % (auto) 14.5 % (10.0-50.0); Mean Corpuscular Hgb Conc. 34.7 g/dL (32.0-36.0); Monocytes # (auto) 2.1 10 ^3/uL (0-1.3); Monocytes % (auto) 12.1 % (0.0-12.0); Neutrophils # (auto) 12.4 10 ^3/uL (1.6-8.6); Neutrophils % (auto) 70.8 % (37.0-80.0); Red Blood Cells 2.25 10^6/uL (4.5-5.90); Red Cell Distribution Width 18.9 % (11.8-14.3)
[2020-07-28 09:07] LABS: Albumin 1.6 g/dL (3.4-5.0); Calcium 7.8 mg/dL (8.5-10.1); Magnesium 1.8 mg/dL (1.6-2.6); Potassium 3.7 mmol/L (3.5-5.1)
[2020-07-28 09:13] LABS: BUN/Creatinine Ratio 27.8; Bilirubin, Total 2.2 mg/dL (0.2-1.0); Phosphorus 2.8 mg/dL (2.5-4.90); Total Protein 5.8 g/dL (6.4-8.2)
[2020-07-28 09:20] LABS: INR 1.29 (0.9-1.15)
[2020-07-28] MEDS: FAMOTIDINE (10MG/ML) 2ML VL IV SCH ×2 (10:00→21:28)
[2020-07-28] MEDS: SPIRONOLACTONE 25 MG TAB PO SCH (10:00)
[2020-07-28] MEDS: FOLIC ACID 1 MG TAB PO SCH (10:00)
[2020-07-28] MEDS: METOPROLOL TARTRATE 25 MG TAB PO SCH ×2 (10:00→21:30)
[2020-07-28] MEDS: SODIUM CHLOR 0.9% PF (SALINE LOCK) 10ML VIAL/SYR IV SCH ×2 (10:00→21:31)
[2020-07-28] MEDS: MULTIPLE VITAMIN TAB PO SCH (10:00)
[2020-07-28] MEDS ORDERED: VANCOMYCIN PER PHARMACY 0 MG IV SCH (11:00)
[2020-07-28] MEDS ORDERED: TPN PER PHARMACY 0 ML IV SCH (11:00)
[2020-07-28] MEDS: VANCOMYCIN 1GM/250ML 250 ML IV SCH ×2 (15:10→21:27)
[2020-07-28] MEDS: FLORASTOR (S. BOULARDII) 250 MG CAP PO SCH ×2 (16:34→21:30)
[2020-07-28] MEDS: metroNIDAZOLE 500 MG TAB PO SCH ×2 (16:35→21:31)
[2020-07-28] MEDS ORDERED: TPN PER PHARMACY IV NR ×9 (20:00)
[2020-07-29] VITALS (31 sets, daily range): BP systolic 128–166; BP diastolic 55–106
[2020-07-29] MEDS: ACCU-CHEK COMFORT CURVE STRIP VI SCH ×2 (00:15→06:19)
[2020-07-29] MEDS: PIPERACILLIN-TAZOB 3.375GM 100 ML IV SCH ×2 (02:07→09:30)
[2020-07-29 04:31] LABS: Basophils # (auto) 0.2 10 ^3/uL (0-0.2); Basophils % (auto) 1.1 % (0.0-2.0); Eosinophils # (auto) 0.3 10 ^3/uL (0-0.8); Eosinophils % (auto) 1.9 % (0.0-7.0); Hematocrit 25.8 % (41.0-53.0); Hemoglobin 8.9 g/dL (13.5-17.5); Lymphocytes # (auto) 2.3 10 ^3/uL (0.4-5.4); Lymphocytes % (auto) 13.8 % (10.0-50.0); Mean Corpuscular Hemoglobin 38.1 pg (28.0-32.0); Mean Corpuscular Hgb Conc. 34.5 g/dL (32.0-36.0); Mean Corpuscular Volume 110.6 fL (80.0-100.0); Monocytes # (auto) 2.3 10 ^3/uL (0-1.3); Monocytes % (auto) 13.7 % (0.0-12.0); Neutrophils # (auto) 11.4 10 ^3/uL (1.6-8.6); Neutrophils % (auto) 69.5 % (37.0-80.0); Red Blood Cells 2.33 10^6/uL (4.5-5.90); Red Cell Distribution Width 18.5 % (11.8-14.3); White Blood Cell 16.4 10^3/uL (4.4-10.8)
[2020-07-29] MEDS: VANCOMYCIN 1GM/250ML 250 ML IV SCH (05:02)
[2020-07-29] MEDS: InsuLIN REG 1unit/0.01ml Soln (100units/ml) SC SCH ×2 (06:00)
[2020-07-29] MEDS: SUCRALFATE 1 GM/10 ML ORAL SUSP PO SCH ×4 (06:10→23:04)
[2020-07-29] MEDS: metroNIDAZOLE 500 MG TAB PO SCH ×3 (06:10→23:05)
[2020-07-29] MEDS: D5W 5% IV SCH ×3 (06:10→22:25)
[2020-07-29] MEDS: THIAMINE IV SCH ×3 (06:10→22:25)
[2020-07-29] MEDS: SPIRONOLACTONE 25 MG TAB PO SCH (09:21)
[2020-07-29] MEDS: FAMOTIDINE (10MG/ML) 2ML VL IV SCH ×2 (09:21→23:06)
[2020-07-29] MEDS: FOLIC ACID 1 MG TAB PO SCH (09:21)
[2020-07-29] MEDS: SODIUM CHLOR 0.9% PF (SALINE LOCK) 10ML VIAL/SYR IV SCH ×2 (09:21→22:25)
[2020-07-29] MEDS: FLORASTOR (S. BOULARDII) 250 MG CAP PO SCH ×2 (09:22→23:05)
[2020-07-29] MEDS: MULTIPLE VITAMIN TAB PO SCH (09:30)
[2020-07-29] MEDS: METOPROLOL TARTRATE 25 MG TAB PO SCH ×2 (09:30→23:05)
[2020-07-29] MEDS ORDERED: METOCLOPRAMIDE HCL 5MG/ml INJ 2ml VIAL IV PRN (13:00)
[2020-07-30] MEDS: VANCOMYCIN 1GM/250ML 250 ML IV SCH ×2 (02:01→12:05)
[2020-07-30 06:57] LABS: Basophils # (auto) 0.2 10 ^3/uL (0-0.2); Eosinophils # (auto) 0.3 10 ^3/uL (0-0.8); Eosinophils % (auto) 1.6 % (0.0-7.0); Hematocrit 24.1 % (41.0-53.0); Hemoglobin 8.4 g/dL (13.5-17.5); Lymphocytes # (auto) 2.6 10 ^3/uL (0.4-5.4); Monocytes # (auto) 2.7 10 ^3/uL (0-1.3); Red Blood Cells 2.19 10^6/uL (4.5-5.90)
[2020-07-30 06:58] LABS: Lymphocytes % (auto) 15.7 % (10.0-50.0); Mean Corpuscular Hemoglobin 38.2 pg (28.0-32.0); Mean Corpuscular Hgb Conc. 34.7 g/dL (32.0-36.0); Mean Corpuscular Volume 110.2 fL (80.0-100.0); Monocytes % (auto) 16.3 % (0.0-12.0); Neutrophils # (auto) 10.6 10 ^3/uL (1.6-8.6); Neutrophils % (auto) 65.4 % (37.0-80.0); Red Cell Distribution Width 17.8 % (11.8-14.3); White Blood Cell 16.3 10^3/uL (4.4-10.8)
[2020-07-30] MEDS: metroNIDAZOLE 500 MG TAB PO SCH (07:00)
[2020-07-30 07:03] LABS: BUN/Creatinine Ratio 18.6
[2020-07-30] MEDS: D5W 5% IV SCH (07:08)
[2020-07-30] MEDS: THIAMINE IV SCH (07:08)
[2020-07-30] MEDS: SUCRALFATE 1 GM/10 ML ORAL SUSP PO SCH ×4 (07:09→21:52)
[2020-07-30 09:00] VITALS: BP 119/67
[2020-07-30] MEDS: SODIUM CHLOR 0.9% PF (SALINE LOCK) 10ML VIAL/SYR IV SCH ×2 (10:00→21:52)
[2020-07-30] MEDS ORDERED: LORazepam 2MG/ML-1ML VIAL IV PRN (11:00)
[2020-07-30] MEDS: MULTIPLE VITAMIN TAB PO SCH (11:28)
[2020-07-30] MEDS: FOLIC ACID 1 MG TAB PO SCH (11:28)
[2020-07-30] MEDS: levoFLOXacin 500MG 100 ML IV SCH (11:29)
[2020-07-30] MEDS: FLORASTOR (S. BOULARDII) 250 MG CAP PO SCH ×2 (11:29→21:52)
[2020-07-30] MEDS: FAMOTIDINE (10MG/ML) 2ML VL IV SCH ×2 (11:29→21:51)
[2020-07-30] MEDS: SPIRONOLACTONE 25 MG TAB PO SCH (11:34)
[2020-07-30] MEDS: METOPROLOL TARTRATE 25 MG TAB PO SCH ×2 (11:56→22:18)
[2020-07-30 13:00] VITALS: BP 133/89
[2020-07-30 17:00] VITALS: BP 149/73
[2020-07-30] MEDS: THIAMINE HCL 100 MG TAB PO SCH (17:32)
[2020-07-30 22:00] VITALS: BP 117/87
[2020-07-31] MEDS: VANCOMYCIN 1GM/250ML 250 ML IV SCH ×2 (03:54→20:21)
[2020-07-31 06:00] VITALS: BP 156/71
[2020-07-31 06:00] LABS: Basophils # (auto) 0.1 10 ^3/uL (0-0.2); Eosinophils # (auto) 0.2 10 ^3/uL (0-0.8); Eosinophils % (auto) 1.6 % (0.0-7.0); Mean Corpuscular Hgb Conc. 34.8 g/dL (32.0-36.0); Monocytes # (auto) 2.4 10 ^3/uL (0-1.3); Red Blood Cells 2.05 10^6/uL (4.5-5.90)
[2020-07-31 06:03] LABS: Hematocrit 22.6 % (41.0-53.0); Hemoglobin 7.9 g/dL (13.5-17.5); Lymphocytes # (auto) 2.1 10 ^3/uL (0.4-5.4); Lymphocytes % (auto) 15.9 % (10.0-50.0); Mean Corpuscular Hemoglobin 38.5 pg (28.0-32.0); Mean Corpuscular Volume 110.4 fL (80.0-100.0); Neutrophils # (auto) 8.4 10 ^3/uL (1.6-8.6); Neutrophils % (auto) 63.5 % (37.0-80.0); Red Cell Distribution Width 17.5 % (11.8-14.3); White Blood Cell 13.2 10^3/uL (4.4-10.8)
[2020-07-31 06:16] LABS: Albumin 1.7 g/dL (3.4-5.0); Calcium 8.3 mg/dL (8.5-10.1); Potassium 3.7 mmol/L (3.5-5.1)
[2020-07-31 06:17] LABS: BUN/Creatinine Ratio 16.8
[2020-07-31 06:20] LABS: Bilirubin, Total 1.9 mg/dL (0.2-1.0); Total Protein 5.7 g/dL (6.4-8.2)
[2020-07-31 06:26] LABS: Monocytes % (auto) 17.8 % (0.0-12.0)
[2020-07-31] MEDS: SUCRALFATE 1 GM/10 ML ORAL SUSP PO SCH ×5 (06:28→22:24)
[2020-07-31 09:00] VITALS: BP 136/78
[2020-07-31] MEDS: THIAMINE HCL 100 MG TAB PO SCH (10:13)
[2020-07-31] MEDS: FOLIC ACID 1 MG TAB PO SCH (10:13)
[2020-07-31] MEDS: MULTIPLE VITAMIN TAB PO SCH (10:14)
[2020-07-31] MEDS: FLORASTOR (S. BOULARDII) 250 MG CAP PO SCH (10:14)
[2020-07-31] MEDS: levoFLOXacin 500MG 100 ML IV SCH (10:16)
[2020-07-31] MEDS: SODIUM CHLOR 0.9% PF (SALINE LOCK) 10ML VIAL/SYR IV SCH ×2 (10:16→22:24)
[2020-07-31] MEDS: FAMOTIDINE (10MG/ML) 2ML VL IV SCH ×2 (10:16→22:24)
[2020-07-31] MEDS: METOPROLOL TARTRATE 25 MG TAB PO SCH ×2 (10:16→22:24)
[2020-07-31] MEDS: SPIRONOLACTONE 25 MG TAB PO SCH (11:57)
[2020-07-31] MEDS: Ensure HIGH Protein Chocolate 8oz Bottle PO SCH ×2 (12:00→18:00)
[2020-07-31 13:00] VITALS: BP 131/78
[2020-07-31 16:41] VITALS: BP 126/78
[2020-07-31 22:00] VITALS: BP 138/66
[2020-08-01 05:00] VITALS: BP 110/87
[2020-08-01] MEDS: SUCRALFATE 1 GM/10 ML ORAL SUSP PO SCH ×4 (06:29→22:00)
[2020-08-01 07:35] LABS: Eosinophils # (auto) 0.2 10 ^3/uL (0-0.8); Monocytes # (auto) 2.5 10 ^3/uL (0-1.3); Red Blood Cells 2.35 10^6/uL (4.5-5.90)
[2020-08-01 07:38] LABS: Basophils # (auto) 0.2 10 ^3/uL (0-0.2); Basophils % (auto) 1.1 % (0.0-2.0); Eosinophils % (auto) 1.6 % (0.0-7.0); Lymphocytes # (auto) 2.1 10 ^3/uL (0.4-5.4); Lymphocytes % (auto) 14.7 % (10.0-50.0); Mean Corpuscular Hemoglobin 38.4 pg (28.0-32.0); Mean Corpuscular Hgb Conc. 34.6 g/dL (32.0-36.0); Mean Corpuscular Volume 110.9 fL (80.0-100.0); Monocytes % (auto) 17.9 % (0.0-12.0); Neutrophils # (auto) 9.1 10 ^3/uL (1.6-8.6); Neutrophils % (auto) 64.7 % (37.0-80.0); Red Cell Distribution Width 16.8 % (11.8-14.3); White Blood Cell 14.1 10^3/uL (4.4-10.8)
[2020-08-01 09:00] VITALS: BP 152/71
[2020-08-01] MEDS: levoFLOXacin 500MG 100 ML IV SCH (10:45)
[2020-08-01] MEDS: MULTIPLE VITAMIN TAB PO SCH (10:46)
[2020-08-01] MEDS: SPIRONOLACTONE 25 MG TAB PO SCH (10:46)
[2020-08-01] MEDS: FOLIC ACID 1 MG TAB PO SCH (10:46)
[2020-08-01] MEDS: FAMOTIDINE (10MG/ML) 2ML VL IV SCH ×2 (10:46→22:39)
[2020-08-01] MEDS: METOPROLOL TARTRATE 25 MG TAB PO SCH ×2 (10:47→22:41)
[2020-08-01] MEDS: FLORASTOR (S. BOULARDII) 250 MG CAP PO SCH (10:47)
[2020-08-01] MEDS: THIAMINE HCL 100 MG TAB PO SCH (10:48)
[2020-08-01] MEDS: SODIUM CHLOR 0.9% PF (SALINE LOCK) 10ML VIAL/SYR IV SCH ×2 (10:57→22:39)
[2020-08-01] MEDS: Ensure HIGH Protein Chocolate 8oz Bottle PO SCH ×3 (10:58→18:08)
[2020-08-01] MEDS: VANCOMYCIN 1GM/250ML 250 ML IV SCH (12:15)
[2020-08-01 13:00] VITALS: BP 140/81
[2020-08-01 18:10] VITALS: BP 116/59
[2020-08-01 21:00] VITALS: BP 133/82
[2020-08-02] MEDS: VANCOMYCIN 1GM/250ML 250 ML IV SCH (04:00)
[2020-08-02] MEDS: SUCRALFATE 1 GM/10 ML ORAL SUSP PO SCH ×4 (06:36→22:00)
[2020-08-02 09:00] VITALS: BP 104/73
[2020-08-02] MEDS ORDERED: FUROSEMIDE 40 MG/4 ML VIAL IV ONE (09:00)
[2020-08-02] MEDS ORDERED: ALBUMIN 25% 100 ML IV ONE (09:00)
[2020-08-02] MEDS: FLORASTOR (S. BOULARDII) 250 MG CAP PO SCH (09:54)
[2020-08-02] MEDS: SPIRONOLACTONE 25 MG TAB PO SCH (09:54)
[2020-08-02] MEDS: MULTIPLE VITAMIN TAB PO SCH (09:54)
[2020-08-02] MEDS: levoFLOXacin 500MG 100 ML IV SCH (09:54)
[2020-08-02] MEDS: FAMOTIDINE (10MG/ML) 2ML VL IV SCH ×2 (09:54→22:00)
[2020-08-02] MEDS: SODIUM CHLOR 0.9% PF (SALINE LOCK) 10ML VIAL/SYR IV SCH ×2 (09:54→22:00)
[2020-08-02] MEDS: FOLIC ACID 1 MG TAB PO SCH (09:54)
[2020-08-02] MEDS: Ensure HIGH Protein Chocolate 8oz Bottle PO SCH ×3 (09:54→18:00)
[2020-08-02] MEDS: THIAMINE HCL 100 MG TAB PO SCH (09:55)
[2020-08-02] MEDS: METOPROLOL TARTRATE 25 MG TAB PO SCH ×2 (09:55→22:00)
[2020-08-02] MEDS ORDERED: D5W 5% IV SCH ×4 (10:00)
[2020-08-02] MEDS ORDERED: THIAMINE IV SCH ×4 (10:00)
[2020-08-02 13:00] VITALS: BP 130/46
[2020-08-02 17:00] VITALS: BP 131/63
[2020-08-02] MEDS ORDERED: LORazepam 2MG/ML-1ML VIAL IV PRN (21:15)
[2020-08-03] MEDS: SUCRALFATE 1 GM/10 ML ORAL SUSP PO SCH ×4 (06:09→23:36)
[2020-08-03 06:23] VITALS: BP 133/69
[2020-08-03 09:00] VITALS: BP 161/79
[2020-08-03] MEDS: levoFLOXacin 500MG 100 ML IV SCH (10:31)
[2020-08-03] MEDS: Ensure HIGH Protein Chocolate 8oz Bottle PO SCH ×3 (10:31→17:27)
[2020-08-03] MEDS: FAMOTIDINE (10MG/ML) 2ML VL IV SCH ×2 (10:31→23:36)
[2020-08-03] MEDS: SPIRONOLACTONE 25 MG TAB PO SCH (10:32)
[2020-08-03] MEDS: FOLIC ACID 1 MG TAB PO SCH (10:32)
[2020-08-03] MEDS: SODIUM CHLOR 0.9% PF (SALINE LOCK) 10ML VIAL/SYR IV SCH ×2 (10:32→22:00)
[2020-08-03] MEDS: THIAMINE HCL 100 MG TAB PO SCH (10:32)
[2020-08-03] MEDS: METOPROLOL TARTRATE 25 MG TAB PO SCH ×2 (10:33→23:38)
[2020-08-03] MEDS: MULTIPLE VITAMIN TAB PO SCH (10:33)
[2020-08-03] MEDS: FLORASTOR (S. BOULARDII) 250 MG CAP PO SCH (10:33)
[2020-08-03 13:00] VITALS: BP 126/68
[2020-08-03 17:00] VITALS: BP 143/71
[2020-08-03 22:33] VITALS: BP 122/72
[2020-08-04] VITALS (7 sets, daily range): BP systolic 138–166; BP diastolic 63–110
[2020-08-04] MEDS: SUCRALFATE 1 GM/10 ML ORAL SUSP PO SCH ×4 (06:34→22:09)
[2020-08-04] MEDS: Ensure HIGH Protein Chocolate 8oz Bottle PO SCH ×3 (08:00→17:40)
[2020-08-04] MEDS: levoFLOXacin 500MG 100 ML IV SCH (09:10)
[2020-08-04] MEDS: SODIUM CHLOR 0.9% PF (SALINE LOCK) 10ML VIAL/SYR IV SCH ×2 (09:11→22:08)
[2020-08-04] MEDS: FAMOTIDINE (10MG/ML) 2ML VL IV SCH ×2 (09:11→22:08)
[2020-08-04] MEDS: FOLIC ACID 1 MG TAB PO SCH (09:11)
[2020-08-04] MEDS: FLORASTOR (S. BOULARDII) 250 MG CAP PO SCH (09:17)
[2020-08-04] MEDS: SPIRONOLACTONE 25 MG TAB PO SCH (09:17)
[2020-08-04] MEDS: METOPROLOL TARTRATE 25 MG TAB PO SCH ×2 (09:17→22:09)
[2020-08-04] MEDS: THIAMINE HCL 100 MG TAB PO SCH (09:17)
[2020-08-04] MEDS: MULTIPLE VITAMIN TAB PO SCH (09:18)
[2020-08-04 11:27] LABS: Mean Corpuscular Hemoglobin 37.4 pg (28.0-32.0)
[2020-08-04 11:29] LABS: Hematocrit 24.1 % (41.0-53.0); Hemoglobin 8.2 g/dL (13.5-17.5); Mean Corpuscular Volume 109.9 fL (80.0-100.0); Potassium 4.1 mmol/L (3.5-5.1); Red Blood Cells 2.19 10^6/uL (4.5-5.90); Red Cell Distribution Width 16.6 % (11.8-14.3); White Blood Cell 11.5 10^3/uL (4.4-10.8)
[2020-08-04 11:38] LABS: Band Neutrophils % (manual) 0; Basophils % (manual) 0 (0.0-2.0); Blast Cells 0; Metamyelocytes % 0; Myelocytes % 0; Promyelocytes % 0; Reactive Lymphocytes 0
[2020-08-04 11:43] LABS: Albumin 1.9 g/dL (3.4-5.0); Calcium 8.2 mg/dL (8.5-10.1)
[2020-08-04 11:44] LABS: INR 1.27 (0.9-1.15)
[2020-08-04 11:45] LABS: BUN/Creatinine Ratio 11.8
[2020-08-04 11:49] LABS: Bilirubin, Total 1.5 mg/dL (0.2-1.0)
[2020-08-04 12:16] LABS: Eosinophils % (manual) 1 (0-7); Lymphocytes % (manual) 13 (10.0-50.0); Monocytes % (manual) 17 (0-12)
[2020-08-04] MEDS: LACTULOSE 20Gm/30ML SOLN PO SCH (22:09)
[2020-08-05 05:00] VITALS: BP 133/76
[2020-08-05 06:09] LABS: Hemoglobin 8.3 g/dL (13.5-17.5); Mean Corpuscular Hgb Conc. 34.8 g/dL (32.0-36.0); Mean Corpuscular Volume 108.2 fL (80.0-100.0); Red Cell Distribution Width 16.6 % (11.8-14.3)
[2020-08-05 06:11] LABS: Hematocrit 23.8 % (41.0-53.0); Mean Corpuscular Hemoglobin 37.6 pg (28.0-32.0); White Blood Cell 10.3 10^3/uL (4.4-10.8)
[2020-08-05 06:24] LABS: Basophils % (manual) 0 (0.0-2.0); Blast Cells 0; Eosinophils % (manual) 0 (0-7); Metamyelocytes % 0; Myelocytes % 0; Promyelocytes % 0
[2020-08-05 06:51] LABS: Band Neutrophils % (manual) 16; Lymphocytes % (manual) 13 (10.0-50.0); Monocytes % (manual) 16 (0-12); Reactive Lymphocytes 1
[2020-08-05 06:57] LABS: BUN/Creatinine Ratio 12.4; Calcium 8.3 mg/dL (8.5-10.1); Potassium 4.1 mmol/L (3.5-5.1)
[2020-08-05] MEDS: SUCRALFATE 1 GM/10 ML ORAL SUSP PO SCH ×4 (07:00→21:24)
[2020-08-05] MEDS: Ensure HIGH Protein Chocolate 8oz Bottle PO SCH ×3 (08:00→18:19)
[2020-08-05 09:00] VITALS: BP 131/82
[2020-08-05] MEDS: FAMOTIDINE (10MG/ML) 2ML VL IV SCH (09:03)
[2020-08-05] MEDS: SODIUM CHLOR 0.9% PF (SALINE LOCK) 10ML VIAL/SYR IV SCH ×2 (09:03→21:02)
[2020-08-05] MEDS: levoFLOXacin 500MG 100 ML IV SCH (09:03)
[2020-08-05] MEDS: SPIRONOLACTONE 25 MG TAB PO SCH (09:05)
[2020-08-05] MEDS: FLORASTOR (S. BOULARDII) 250 MG CAP PO SCH (09:05)
[2020-08-05] MEDS: THIAMINE HCL 100 MG TAB PO SCH (09:05)
[2020-08-05] MEDS: FOLIC ACID 1 MG TAB PO SCH (09:05)
[2020-08-05] MEDS: MULTIPLE VITAMIN TAB PO SCH (09:06)
[2020-08-05] MEDS: METOPROLOL TARTRATE 25 MG TAB PO SCH ×2 (10:00→21:25)
[2020-08-05] MEDS: LACTULOSE 20Gm/30ML SOLN PO SCH ×2 (10:00→21:24)
[2020-08-05] MEDS: SOD CHL 0.45% 1,000 ML IV SCH (11:30)
[2020-08-05 13:00] VITALS: BP 120/63
[2020-08-05 17:00] VITALS: BP 136/82
[2020-08-05 20:39] VITALS: BP 150/67
[2020-08-05] MEDS: FAMOTIDINE 20 MG TAB PO SCH (21:25)
[2020-08-05 22:00] VITALS: BP 150/67
[2020-08-06 05:00] VITALS: BP 136/75
[2020-08-06] MEDS: SUCRALFATE 1 GM/10 ML ORAL SUSP PO SCH ×4 (06:46→21:23)
[2020-08-06] MEDS: SOD CHL 0.45% 1,000 ML IV SCH (06:46)
[2020-08-06 06:54] LABS: Potassium 3.9 mmol/L (3.5-5.1)
[2020-08-06 07:00] LABS: BUN/Creatinine Ratio 12.4; Calcium 8.7 mg/dL (8.5-10.1)
[2020-08-06] MEDS: Ensure HIGH Protein Chocolate 8oz Bottle PO SCH ×3 (08:15→18:08)
[2020-08-06 09:00] VITALS: BP 143/87
[2020-08-06] MEDS: SODIUM CHLOR 0.9% PF (SALINE LOCK) 10ML VIAL/SYR IV SCH ×2 (10:02→21:22)
[2020-08-06] MEDS: levoFLOXacin 500MG 100 ML IV SCH (10:12)
[2020-08-06] MEDS: LACTULOSE 20Gm/30ML SOLN PO SCH ×2 (10:12→21:23)
[2020-08-06] MEDS: FLORASTOR (S. BOULARDII) 250 MG CAP PO SCH (10:12)
[2020-08-06] MEDS: MULTIPLE VITAMIN TAB PO SCH (10:12)
[2020-08-06] MEDS: SPIRONOLACTONE 25 MG TAB PO SCH (10:13)
[2020-08-06] MEDS: FAMOTIDINE 20 MG TAB PO SCH ×2 (10:13→21:24)
[2020-08-06] MEDS: FOLIC ACID 1 MG TAB PO SCH (10:13)
[2020-08-06] MEDS: METOPROLOL TARTRATE 25 MG TAB PO SCH ×2 (10:14→21:24)
[2020-08-06] MEDS: THIAMINE HCL 100 MG TAB PO SCH (10:15)
[2020-08-06 12:57] VITALS: BP 152/97
[2020-08-06 17:09] VITALS: BP 164/95
[2020-08-06 21:03] VITALS: BP 146/83
[2020-08-07] MEDS: SOD CHL 0.45% 1,000 ML IV SCH ×2 (03:30→21:53)
[2020-08-07 05:04] VITALS: BP 145/82
[2020-08-07] MEDS: SUCRALFATE 1 GM/10 ML ORAL SUSP PO SCH ×4 (06:25→21:47)
[2020-08-07] MEDS: Ensure HIGH Protein Chocolate 8oz Bottle PO SCH ×3 (08:15→21:48)
[2020-08-07 09:00] VITALS: BP 119/82
[2020-08-07] MEDS: METOPROLOL TARTRATE 25 MG TAB PO SCH ×2 (10:45→21:48)
[2020-08-07] MEDS: LACTULOSE 20Gm/30ML SOLN PO SCH ×2 (10:45→21:47)
[2020-08-07] MEDS: FLORASTOR (S. BOULARDII) 250 MG CAP PO SCH (10:45)
[2020-08-07] MEDS: FAMOTIDINE 20 MG TAB PO SCH ×2 (10:45→21:48)
[2020-08-07] MEDS: levoFLOXacin 500MG 100 ML IV SCH (10:45)
[2020-08-07] MEDS: THIAMINE HCL 100 MG TAB PO SCH (10:45)
[2020-08-07] MEDS: MULTIPLE VITAMIN TAB PO SCH (10:45)
[2020-08-07] MEDS: SODIUM CHLOR 0.9% PF (SALINE LOCK) 10ML VIAL/SYR IV SCH ×2 (10:45→21:48)
[2020-08-07] MEDS: FOLIC ACID 1 MG TAB PO SCH (10:45)
[2020-08-07] MEDS: SPIRONOLACTONE 25 MG TAB PO SCH (10:45)
[2020-08-07 13:00] VITALS: BP 119/72
[2020-08-07 17:00] VITALS: BP 147/79
[2020-08-07 22:00] VITALS: BP 129/66
[2020-08-08 05:00] VITALS: BP 121/55
[2020-08-08 05:19] LABS: Basophils # (auto) 0.2 10 ^3/uL (0-0.2); Basophils % (auto) 1.5 % (0.0-2.0); Eosinophils # (auto) 0.3 10 ^3/uL (0-0.8); Eosinophils % (auto) 2.1 % (0.0-7.0); Hematocrit 23.6 % (41.0-53.0); Hemoglobin 8.1 g/dL (13.5-17.5); Lymphocytes # (auto) 2.3 10 ^3/uL (0.4-5.4); Lymphocytes % (auto) 19.2 % (10.0-50.0); Mean Corpuscular Hemoglobin 36.8 pg (28.0-32.0); Mean Corpuscular Hgb Conc. 34.3 g/dL (32.0-36.0); Mean Corpuscular Volume 107.5 fL (80.0-100.0); Monocytes # (auto) 2.1 10 ^3/uL (0-1.3); Monocytes % (auto) 17.5 % (0.0-12.0); Neutrophils # (auto) 7.2 10 ^3/uL (1.6-8.6); Neutrophils % (auto) 59.7 % (37.0-80.0); Red Blood Cells 2.19 10^6/uL (4.5-5.90); Red Cell Distribution Width 16.1 % (11.8-14.3)
[2020-08-08 05:36] LABS: Albumin 1.9 g/dL (3.4-5.0); Calcium 7.9 mg/dL (8.5-10.1); Magnesium 1.8 mg/dL (1.6-2.6); Potassium 3.9 mmol/L (3.5-5.1)
[2020-08-08 05:40] LABS: Bilirubin, Total 1.3 mg/dL (0.2-1.0); Phosphorus 3.7 mg/dL (2.5-4.90); Total Protein 5.9 g/dL (6.4-8.2)
[2020-08-08 05:44] LABS: BUN/Creatinine Ratio 11.4
[2020-08-08] MEDS: SUCRALFATE 1 GM/10 ML ORAL SUSP PO SCH ×4 (06:08→22:00)
[2020-08-08] MEDS: Ensure HIGH Protein Chocolate 8oz Bottle PO SCH ×3 (08:30→18:19)
[2020-08-08 08:31] VITALS: BP 151/113
[2020-08-08] MEDS: SODIUM CHLOR 0.9% PF (SALINE LOCK) 10ML VIAL/SYR IV SCH ×2 (09:58→22:58)
[2020-08-08] MEDS: LACTULOSE 20Gm/30ML SOLN PO SCH ×2 (10:15→22:00)
[2020-08-08] MEDS: THIAMINE HCL 100 MG TAB PO SCH (10:16)
[2020-08-08] MEDS: FOLIC ACID 1 MG TAB PO SCH (10:18)
[2020-08-08] MEDS: SPIRONOLACTONE 25 MG TAB PO SCH (10:19)
[2020-08-08] MEDS: FLORASTOR (S. BOULARDII) 250 MG CAP PO SCH (10:19)
[2020-08-08] MEDS: FAMOTIDINE 20 MG TAB PO SCH ×2 (10:20→22:58)
[2020-08-08] MEDS: MULTIPLE VITAMIN TAB PO SCH (10:21)
[2020-08-08] MEDS: levoFLOXacin 500MG 100 ML IV SCH (10:22)
[2020-08-08] MEDS: METOPROLOL TARTRATE 25 MG TAB PO SCH ×2 (10:27→22:59)
[2020-08-08 13:04] VITALS: BP 92/51
[2020-08-08 16:15] VITALS: BP 113/76
[2020-08-08] MEDS: SOD CHL 0.45% 1,000 ML IV SCH (19:30)
[2020-08-08 22:00] VITALS: BP 128/77
[2020-08-09 04:51] VITALS: BP 128/80
[2020-08-09] MEDS: SUCRALFATE 1 GM/10 ML ORAL SUSP PO SCH ×4 (05:32→22:00)
[2020-08-09] MEDS: SOD CHL 0.45% 1,000 ML IV SCH (05:33)
[2020-08-09 08:46] VITALS: BP 101/35
[2020-08-09] MEDS: SPIRONOLACTONE 25 MG TAB PO SCH (10:00)
[2020-08-09] MEDS: METOPROLOL TARTRATE 25 MG TAB PO SCH ×2 (10:00→22:00)
[2020-08-09] MEDS: LACTULOSE 20Gm/30ML SOLN PO SCH ×2 (10:00→22:00)
[2020-08-09] MEDS: Ensure HIGH Protein Chocolate 8oz Bottle PO SCH ×3 (11:40→18:36)
[2020-08-09] MEDS: SODIUM CHLOR 0.9% PF (SALINE LOCK) 10ML VIAL/SYR IV SCH ×2 (11:41→22:00)
[2020-08-09] MEDS: THIAMINE HCL 100 MG TAB PO SCH (11:42)
[2020-08-09] MEDS: FLORASTOR (S. BOULARDII) 250 MG CAP PO SCH (11:43)
[2020-08-09] MEDS: levoFLOXacin 500 MG TAB PO SCH (11:44)
[2020-08-09] MEDS: FOLIC ACID 1 MG TAB PO SCH (11:44)
[2020-08-09] MEDS: MULTIPLE VITAMIN TAB PO SCH (11:44)
[2020-08-09] MEDS: FAMOTIDINE 20 MG TAB PO SCH ×2 (11:45→22:00)
[2020-08-09 13:00] VITALS: BP 101/59
[2020-08-09 17:00] VITALS: BP 112/68
[2020-08-09 22:00] VITALS: BP 125/60
[2020-08-10 05:00] VITALS: BP 125/67
[2020-08-10] MEDS: SOD CHL 0.45% 1,000 ML IV SCH (06:56)
[2020-08-10] MEDS: SUCRALFATE 1 GM/10 ML ORAL SUSP PO SCH ×4 (06:56→22:42)
[2020-08-10 07:47] LABS: Basophils # (auto) 0.1 10 ^3/uL (0-0.2); Eosinophils # (auto) 0.2 10 ^3/uL (0-0.8); Monocytes # (auto) 1.9 10 ^3/uL (0-1.3); Nucleated Red Blood Cells % 0.1 %
[2020-08-10 07:49] LABS: Basophils % (auto) 1.1 % (0.0-2.0); Eosinophils % (auto) 1.4 % (0.0-7.0); Hematocrit 22.1 % (41.0-53.0); Hemoglobin 7.6 g/dL (13.5-17.5); Lymphocytes # (auto) 2.1 10 ^3/uL (0.4-5.4); Lymphocytes % (auto) 15.9 % (10.0-50.0); Mean Corpuscular Hemoglobin 36.1 pg (28.0-32.0); Mean Corpuscular Hgb Conc. 34.2 g/dL (32.0-36.0); Mean Corpuscular Volume 105.5 fL (80.0-100.0); Monocytes % (auto) 14.8 % (0.0-12.0); Neutrophils # (auto) 8.7 10 ^3/uL (1.6-8.6); Neutrophils % (auto) 66.8 % (37.0-80.0); Red Cell Distribution Width 16.3 % (11.8-14.3); White Blood Cell 13.1 10^3/uL (4.4-10.8)
[2020-08-10] MEDS: Ensure HIGH Protein Chocolate 8oz Bottle PO SCH ×3 (08:00→18:00)
[2020-08-10 08:05] LABS: Potassium 4.1 mmol/L (3.5-5.1)
[2020-08-10 09:00] VITALS: BP 133/67
[2020-08-10] MEDS: FOLIC ACID 1 MG TAB PO SCH (09:15)
[2020-08-10] MEDS: THIAMINE HCL 100 MG TAB PO SCH (09:15)
[2020-08-10] MEDS: LACTULOSE 20Gm/30ML SOLN PO SCH ×2 (09:15→22:41)
[2020-08-10] MEDS: SODIUM CHLOR 0.9% PF (SALINE LOCK) 10ML VIAL/SYR IV SCH ×2 (09:15→22:41)
[2020-08-10] MEDS: FLORASTOR (S. BOULARDII) 250 MG CAP PO SCH (09:16)
[2020-08-10] MEDS: MULTIPLE VITAMIN TAB PO SCH (09:16)
[2020-08-10] MEDS: FAMOTIDINE 20 MG TAB PO SCH ×2 (09:16→22:44)
[2020-08-10] MEDS: levoFLOXacin 500 MG TAB PO SCH (09:16)
[2020-08-10] MEDS: SPIRONOLACTONE 25 MG TAB PO SCH (09:16)
[2020-08-10] MEDS: METOPROLOL TARTRATE 25 MG TAB PO SCH ×2 (10:00→22:44)
[2020-08-10] MEDS ORDERED: chlordiazePOXIDE HCL 25 MG CAP PO PRN (12:15)
[2020-08-10 13:00] VITALS: BP 138/73
[2020-08-10 17:00] VITALS: BP 122/66
[2020-08-10 22:00] VITALS: BP 138/82
[2020-08-11 05:00] VITALS: BP 136/78
[2020-08-11] MEDS: SUCRALFATE 1 GM/10 ML ORAL SUSP PO SCH ×4 (06:50→21:22)
[2020-08-11] MEDS: SOD CHL 0.45% 1,000 ML IV SCH (07:30)
[2020-08-11] MEDS: Ensure HIGH Protein Chocolate 8oz Bottle PO SCH ×3 (08:00→18:04)
[2020-08-11 09:00] VITALS: BP 158/82
[2020-08-11] MEDS: FOLIC ACID 1 MG TAB PO SCH (09:24)
[2020-08-11] MEDS: LACTULOSE 20Gm/30ML SOLN PO SCH ×2 (09:24→21:08)
[2020-08-11] MEDS: SODIUM CHLOR 0.9% PF (SALINE LOCK) 10ML VIAL/SYR IV SCH ×2 (09:24→21:09)
[2020-08-11] MEDS: SPIRONOLACTONE 25 MG TAB PO SCH (09:24)
[2020-08-11] MEDS: THIAMINE HCL 100 MG TAB PO SCH (09:24)
[2020-08-11] MEDS: METOPROLOL TARTRATE 25 MG TAB PO SCH ×2 (09:25→21:11)
[2020-08-11] MEDS: MULTIPLE VITAMIN TAB PO SCH (09:25)
[2020-08-11] MEDS: levoFLOXacin 500 MG TAB PO SCH (09:25)
[2020-08-11] MEDS: FLORASTOR (S. BOULARDII) 250 MG CAP PO SCH (09:25)
[2020-08-11] MEDS: FAMOTIDINE 20 MG TAB PO SCH ×2 (09:25→21:09)
[2020-08-11 13:00] VITALS: BP 135/81
[2020-08-11 16:54] VITALS: BP 141/79
[2020-08-11 22:00] VITALS: BP 134/80
[2020-08-12] MEDS: SOD CHL 0.45% 1,000 ML IV SCH (04:05)
[2020-08-12 05:00] VITALS: BP 148/87
[2020-08-12] MEDS: SUCRALFATE 1 GM/10 ML ORAL SUSP PO SCH ×4 (06:26→21:22)
[2020-08-12] MEDS: Ensure HIGH Protein Chocolate 8oz Bottle PO SCH ×3 (08:00→18:02)
[2020-08-12 09:02] VITALS: BP 127/77
[2020-08-12] MEDS: levoFLOXacin 500 MG TAB PO SCH (09:51)
[2020-08-12] MEDS: LACTULOSE 20Gm/30ML SOLN PO SCH ×2 (09:51→21:22)
[2020-08-12] MEDS: THIAMINE HCL 100 MG TAB PO SCH (09:52)
[2020-08-12] MEDS: FLORASTOR (S. BOULARDII) 250 MG CAP PO SCH (09:52)
[2020-08-12] MEDS: FOLIC ACID 1 MG TAB PO SCH (09:53)
[2020-08-12] MEDS: FAMOTIDINE 20 MG TAB PO SCH ×2 (09:53→21:23)
[2020-08-12] MEDS: SPIRONOLACTONE 25 MG TAB PO SCH (09:53)
[2020-08-12] MEDS: METOPROLOL TARTRATE 25 MG TAB PO SCH ×2 (09:53→21:24)
[2020-08-12] MEDS: MULTIPLE VITAMIN TAB PO SCH (09:53)
[2020-08-12] MEDS: SODIUM CHLOR 0.9% PF (SALINE LOCK) 10ML VIAL/SYR IV SCH ×2 (10:00→21:22)
[2020-08-12 13:06] VITALS: BP 128/74
[2020-08-12 17:10] VITALS: BP 122/74
[2020-08-12] MEDS: FERROUS SULFATE 325mg EC TAB PO SCH (18:01)
[2020-08-12 21:48] VITALS: BP 148/87
[2020-08-13 05:00] VITALS: BP 157/89
[2020-08-13 06:02] LABS: Basophils # (auto) 0.1 10 ^3/uL (0-0.2); Basophils % (auto) 1.1 % (0.0-2.0); Eosinophils # (auto) 0.2 10 ^3/uL (0-0.8); Eosinophils % (auto) 1.7 % (0.0-7.0); Hemoglobin 7.9 g/dL (13.5-17.5); Lymphocytes % (auto) 15.8 % (10.0-50.0); Mean Corpuscular Hemoglobin 36.3 pg (28.0-32.0); Mean Corpuscular Hgb Conc. 34.4 g/dL (32.0-36.0); Mean Corpuscular Volume 105.3 fL (80.0-100.0); Monocytes # (auto) 1.8 10 ^3/uL (0-1.3); Monocytes % (auto) 14.3 % (0.0-12.0); Neutrophils # (auto) 8.4 10 ^3/uL (1.6-8.6); Neutrophils % (auto) 67.1 % (37.0-80.0); Red Blood Cells 2.19 10^6/uL (4.5-5.90); Red Cell Distribution Width 16.1 % (11.8-14.3); White Blood Cell 12.5 10^3/uL (4.4-10.8)
[2020-08-13 06:17] LABS: Albumin 1.9 g/dL (3.4-5.0); Calcium 8.2 mg/dL (8.5-10.1); Potassium 4.3 mmol/L (3.5-5.1)
[2020-08-13 06:23] LABS: BUN/Creatinine Ratio 10.8; Bilirubin, Total 1.2 mg/dL (0.2-1.0)
[2020-08-13] MEDS: SUCRALFATE 1 GM/10 ML ORAL SUSP PO SCH ×2 (06:40→12:08)
[2020-08-13] MEDS ORDERED: dilTIAZem 25 MG/5 ML VIAL IV ONE (07:15)
[2020-08-13 07:27] VITALS: BP 117/72
[2020-08-13 08:59] VITALS: BP 110/59
[2020-08-13] MEDS: FAMOTIDINE 20 MG TAB PO SCH (09:52)
[2020-08-13] MEDS: METOPROLOL TARTRATE 25 MG TAB PO SCH (09:53)
[2020-08-13] MEDS: FOLIC ACID 1 MG TAB PO SCH (09:53)
[2020-08-13] MEDS: FERROUS SULFATE 325mg EC TAB PO SCH (09:53)
[2020-08-13] MEDS: MULTIPLE VITAMIN TAB PO SCH (09:53)
[2020-08-13] MEDS: levoFLOXacin 500 MG TAB PO SCH (09:53)
[2020-08-13] MEDS: THIAMINE HCL 100 MG TAB PO SCH (09:54)
[2020-08-13] MEDS: LACTULOSE 20Gm/30ML SOLN PO SCH (09:55)
[2020-08-13] MEDS: SPIRONOLACTONE 25 MG TAB PO SCH (09:55)
[2020-08-13] MEDS: FLORASTOR (S. BOULARDII) 250 MG CAP PO SCH (09:56)
[2020-08-13] MEDS: Ensure HIGH Protein Chocolate 8oz Bottle PO SCH ×2 (09:59→12:08)
[2020-08-13] MEDS: SODIUM CHLOR 0.9% PF (SALINE LOCK) 10ML VIAL/SYR IV SCH (09:59)
[2020-08-13 11:00] VITALS: BP 122/76
[2020-08-13 13:00] VITALS: BP 141/85
[2020-08-13 13:10] VITALS: BP 122/76
== END 2020-08-13 17:00 | disposition home health service (06) | DRG 871 ==
LOC: EDBD 13:39 → ER 13:39 → TELE 13:40 → TELE-WESTW 07-18 08:05 → TELE-CENTR 07-19 11:20 → ICU WEST 07-23 01:48 → TELE-EAST 07-29 21:00 → TELE-WESTW 08-09 15:52
PROVIDERS: ADMIT Hospitalist; ATTEND Internal Medicine
PROC: 0W9G30Z Drainage of Peritoneal Cavity with Drainage Device, Percutaneous Approach (ICD-10-PCS; principal; 2020-07-16)
PROC: 05HB33Z Insertion of Infusion Device into Right Basilic Vein, Percutaneous Approach (ICD-10-PCS; 2020-07-22)
PROC: B54MZZA Ultrasonography of Right Upper Extremity Veins, Guidance (ICD-10-PCS; 2020-07-22)
PROC: 02HV33Z Insertion of Infusion Device into Superior Vena Cava, Percutaneous Approach (ICD-10-PCS; 2020-07-26)
DX: A41.9 Sepsis, unspecified organism (principal); G93.41 Metabolic encephalopathy; E43 Unspecified severe protein-calorie malnutrition; K72.00 Acute and subacute hepatic failure without coma; N17.0 Acute kidney failure with tubular necrosis; I50.31 Acute diastolic (congestive) heart failure; J96.01 Acute respiratory failure with hypoxia; J18.9 Pneumonia, unspecified organism; F10.239 Alcohol dependence with withdrawal, unspecified; E87.1 Hypo-osmolality and hyponatremia; D68.4 Acquired coagulation factor deficiency; D61.818 Other pancytopenia; E87.0 Hyperosmolality and hypernatremia; K76.6 Portal hypertension; E51.2 Wernicke's encephalopathy; I13.0 Hypertensive heart and chronic kidney disease with heart failure and stage 1 through stage 4 chronic kidney disease, or unspecified chronic kidney disease; E86.1 Hypovolemia; E87.6 Hypokalemia; N18.2 Chronic kidney disease, stage 2 (mild); I48.0 Paroxysmal atrial fibrillation; E66.9 Obesity, unspecified; K70.31 Alcoholic cirrhosis of liver with ascites; E78.5 Hyperlipidemia, unspecified; E87.70 Fluid overload, unspecified; F41.9 Anxiety disorder, unspecified; K80.20 Calculus of gallbladder without cholecystitis without obstruction; Z20.822 Contact with and (suspected) exposure to COVID-19; Z79.899 Other long term (current) drug therapy; Z82.3 Family history of stroke; Z82.49 Family history of ischemic heart disease and other diseases of the circulatory system; Z68.33 Body mass index [BMI] 33.0-33.9, adult
CPT/HCPCS: 10022; 36415; 36569; 36600; 70450; 71045; 71250; 74176; 76700; 76705; 76942; 80048; 80053; 80061; 80202; 80307; 80320; 81001; 82040; 82140; 82565; 82607; 82746; 82805; 82962; 83036; 83690; 83735; 83880; 83986; 84100; 84439; 84443; 84478; 84484; 85007; 85025; 85027; 85610; 85730; 86703; 86705; 86803; 87040; 87086; 87088; 87205; 87340; 87426; 87493; 89051; 92610; 93005; 93306; 93970; 95819; 96365; 96375; 97110; 97116; 97163; 97530; C9113; G0378; J0696; J1956; J2001; J2543; J3480; J3490; J7060; P9047